=== PATIENT | male | born 2000 | race Caucasian/White ===

== ENCOUNTER 2022-01-08 00:49 | Emergency (ER) | payer BC ==
[~2022-01-08] VITALS: Ht 172.7 cm; Wt 67.3 kg
[2022-01-08 00:56] VITALS: BP 158/78; PULSE 81; TEMP 97
== END 2022-01-08 01:30 | disposition home or self-care (01) ==
LOC: COL.ER 00:49
DX: T50.901A Poisoning by unspecified drugs, medicaments and biological substances, accidental (unintentional), initial encounter (principal)